=== PATIENT | female | born 1970 | race Caucasian/White ===

== ENCOUNTER 2016-07-28 19:47 | Emergency (ER) | payer OTHER ==
[2016-07-28 19:54] VITALS: BP 100/64; PULSE 60; TEMP 97.8; BMI 25.7
[2016-07-28] MEDS ORDERED: KETOROLAC TROMETHAMINE 30 MG/1 ML VIAL IM ONE (21:01)
[2016-07-28 21:06] LABS: URINE APPEARANCE SLCLOUDY; URINE BILIRUBIN NEGATIVE (NEGATIVE); URINE BLOOD NEGATIVE (NEGATIVE); URINE COLOR LTYELLOW; URINE GLUCOSE (UA) NEGATIVE (NEGATIVE); URINE KETONE NEGATIVE (NEGATIVE); URINE LEUK ESTERASE NEGATIVE (NEGATIVE); URINE NITRITE NEGATIVE (NEGATIVE); URINE PROTEIN NEGATIVE (NEGATIVE); URINE UROBILINOGEN NEGATIVE E.U./dl (0.2-1.0)
[2016-07-28] MEDS ORDERED: KETOROLAC TROMETHAMINE 30 MG/1 ML VIAL ONE (21:11)
--- NOTE | 2016-07-28 21:36 | PDOC ---
History of Present Illness - General Chief Complaint: Back Pain Stated Complaint: LOWER BACK PAIN Time Seen by Provider: 07/28/16 20:45 History Source: Patient Exam Limitations: No Limitations - History of Present Illness Initial Comments: 07/28/16 21:31 CC right lower back pain pain x 3 days; no trauma; no B/B disfuction Occurred: reports: last week Severity: reports: moderate Pain Location: reports: back Past History - Past Medical History Allergies/Adverse Reactions: Allergies Allergy/AdvReac Type Severity Reaction Status Date / Time No Known Allergies Allergy Verified 07/28/16 19:52 Home Medications: Ambulatory Orders NK [No Known Home Medication] 07/28/16 Anemia: Yes - Psycho/Social/Smoking Cessation Hx Suicidal Ideation: No Smoking History: Never smoked Review of Systems - Review of Systems Constitutional: No: Chills, Fever, Malaise HEENTM: No: Symptoms Reported, Difficulty Swallowing Respiratory: No: Symptoms reported, Cough Cardiac (ROS): No: Symptoms Reported ABD/GI: No: Symptoms Reported : No: Symptoms Reported Musculoskeletal: Yes: Back Pain Integumentary: No: Bruising, Lesions, Lumps Neurological: No: Symptoms reported *Physical Exam - Vital Signs Last Vital Signs Temp Pulse Resp BP Pulse Ox 97.8 F 60 18 100/64 98 07/28/16 19:52 07/28/16 19:52 07/28/16 19:52 07/28/16 19:52 07/28/16 19:52 - Physical Exam General Appearance: Yes: Appropriately Dressed HEENT: positive: TMs Normal, Pharynx Normal Neck: positive: Supple. negative: Tender, Rigid Respiratory/Chest: positive: Lungs Clear Cardiovascular: positive: Regular Rhythm, Regular Rate. negative: Murmur Musculoskeletal: positive: Other (tender to area of right SI joint) Extremity: negative: Erythema Integumentary: negative: Erythema, Rash Neurologic: positive: Alert, Motor Strength 5/5, Other (no oroot pain on SLRs; no foot drop). negative: Sensory Deficit, Babinski Deep Tendon Reflexes: Ankle (L): 2+, Ankle (R): 2+, Knee (L): 2+, Knee (R): 2+ ED Treatment Course - ADDITIONAL ORDERS Additional order review: Laboratory Results 07/28/16 20:50 Urine Color Ltyellow Urine Appearance Slcloudy Urine pH 6.0 Ur Specific [place] 1.025 Urine Protein Negative Urine Glucose (UA) Negative Urine Ketones Negative Urine Blood Negative Urine Nitrite Negative Urine Bilirubin Negative Urine Urobilinogen Negative Ur Leukocyte Esterase Negative Urine HCG, Qual Negative - Medications Given in the ED: ED Medications Discontinued Medications Generic Name Dose Route Start Last Admin Trade Name Bryce PRN Reason Stop Dose Admin Ketorolac Tromethamine 30 mg 07/28/16 21:01 07/28/16 21:21 Toradol Injection - IM 07/28/16 21:02 30 mg ONCE ONE Administration Medical Decision Making - Medical Decision Making 07/28/16 21:35 UA/ U preg= wnl; feeling better post toradol in ED *DC/Admit/Observation/Transfer Diagnosis at time of Disposition: Back pain Qualifiers: Back pain location: low back pain Chronicity: acute Back pain laterality: right Sciatica presence: without sciatica Qualified Code(s): M54.5 - Low back pain - Discharge Dispostion Disposition: HOME Condition at time of disposition: Stable Admit: No - Patient Instructions Additional Instructions: please see local MD this week in pain no better - Post Discharge Activity Work/School Note: Back to Work
== END 2016-07-28 21:51 | disposition home or self-care (01) ==
LOC: JERFT 19:47
PROC: 3E0233Z Introduction of Anti-inflammatory into Muscle, Percutaneous Approach (ICD-10-PCS; principal; 2016-07-28)
DX: M54.5 Low back pain (principal)
CPT/HCPCS: 81003; 84703; 96372; 99281-25

== ENCOUNTER 2016-07-29 17:52 | Emergency (ER) | payer OTHER ==
--- NOTE | 2016-07-29 18:07 | PDOC ---
Rapid Medical Evaluation Time Seen by Provider: 07/29/16 18:01 Medical Evaluation: Allergies Allergy/AdvReac Type Severity Reaction Status Date / Time No Known Allergies Allergy Verified 07/28/16 19:52 07/29/16 18:20 46 yo F h/o right sided nephrolithiasis c/o x3d ago. Seen here at [facility] last evening. UA was normal/ Upreg was negative last evening. Same pain today.
[2016-07-29 18:23] VITALS: BMI 25.7
[2016-07-29] MEDS ORDERED: KETOROLAC TROMETHAMINE 60 MG/2 ML VIAL IM ONE (19:16)
[2016-07-29] MEDS ORDERED: KETOROLAC TROMETHAMINE 30 MG/1 ML VIAL ONE (19:26)
[2016-07-29 19:44] LABS: URINE APPEARANCE CLEAR; URINE BILIRUBIN NEGATIVE (NEGATIVE); URINE BLOOD NEGATIVE (NEGATIVE); URINE COLOR LTYELLOW; URINE GLUCOSE (UA) NEGATIVE (NEGATIVE); URINE KETONE NEGATIVE (NEGATIVE); URINE LEUK ESTERASE NEGATIVE (NEGATIVE); URINE NITRITE NEGATIVE (NEGATIVE); URINE PROTEIN NEGATIVE (NEGATIVE); URINE UROBILINOGEN NEGATIVE E.U./dl (0.2-1.0)
[2016-07-29 19:50] LABS: BASOPHIL 0.8 % (0-2.0); EOSINOPHIL 1.7 % (0-4.5); MCH 30.9 pg (25.7-33.7); MCHC 33.8 g/dl (32.0-36.0); MEAN CELL VOLUME 91.5 fl (80-96); MEAN PLT VOLUME 7.7 fl (7.5-11.1); NEUTROPHILS 70.9 % (42.8-82.8); PLATELET COUNT 248 K/MM3 (134-434); RDW 13.5 % (11.6-15.6); WHITE BLOOD COUNT 10.6 K/mm3 (4.0-10.0)
[2016-07-29 20:14] LABS: ALBUMIN 4.2 g/dl (3.4-5.0); ALK PHOS 81 U/L (45-117); ANION GAP 6 (8-16); BILIRUBIN,TOTAL 0.3 mg/dL (0.2-1.0); CALCIUM 9.1 mg/dL (8.5-10.1); CO2 29 mmol/L (21-32); CREATININE 0.7 mg/dL (0.55-1.02); GLUCOSE,RANDOM 100 mg/dL (74-106); SGOT/AST 16 U/L (15-37); SGPT/ALT 28 U/L (12-78); TOT PROT 7.1 g/dl (6.4-8.2)
--- NOTE | 2016-07-29 20:22 | PDOC ---
History of Present Illness <KobiBelinda Latosha - Last Filed: 07/29/16 20:25> - History of Present Illness Initial Comments: 07/29/16 20:30 Patient is a 46 year old female with significant medical hx of anemia and hypotension who is presenting to the ED with right lower back pain for the past three weeks. Three weeks ago the patient stood out of bed too quickly and felt a muscle pull in her lower back. Her pain is localized to her right lower back with radiation down her right buttock and right lower extremity. The patient reports her pain worsens when standing and relieves when lying on her right side. Two weeks ago the patient was seen at [facility] and discharged on flexeril and naproxen; her pain relieved temporarily until it returned three days ago. She decided to come to the ED for further evaluation. Social Hx: Rare tobacco and alcohol use. Denies recreational drug use. Surgical Hx: 2008 LNMP: Allergies: None <Keyana Herman - Last Filed: 07/29/16 20:32> - General Chief Complaint: Pain Stated Complaint: BACK PAIN Time Seen by Provider: 07/29/16 18:01 Past History - Past Medical History Anemia: Yes Kidney Stones: Yes - Psycho/Social/Smoking Cessation Hx Anxiety: No Suicidal Ideation: No Smoking History: Never smoked Have you smoked in the past 12 months: No Information on smoking cessation initiated: No Hx Alcohol Use: No Drug/Substance Use Hx: No Substance Use Type: None <KobiBelindarai Reina - Last Filed: 07/29/16 20:25> <Keyana Herman - Last Filed: 07/29/16 20:32> - Past Medical History Allergies/Adverse Reactions: Allergies Allergy/AdvReac Type Severity Reaction Status Date / Time No Known Allergies Allergy Verified 07/29/16 18:18 Home Medications: Ambulatory Orders Cyclobenzaprine HCl [Flexeril 10 mg] 5 mg PO BID PRN #14 tablet 07/28/16 Naproxen [EC-Naprosyn] 375 mg PO BID #20 tablet.ec 07/28/16 Review of Systems - Review of Systems Comments:: 07/29/16 20:30 CONSTITUTIONAL: Absent: fever, chills, diaphoresis, generalized weakness, malaise, loss of appetite HEENT: Absent: rhinorrhea, nasal congestion, throat pain, throat swelling, difficulty swallowing, mouth swelling, ear pain, eye pain, visual changes CARDIOVASCULAR: Absent: chest pain, syncope, palpitations, irregular heart rate, lightheadedness , peripheral edema RESPIRATORY: Absent: cough, shortness of breath, dyspnea with exertion, orthopnea, wheezing, stridor, hemoptysis GASTROINTESTINAL: Absent: abdominal pain, abdominal distension, nausea, vomiting, diarrhea, constipation, melena, hematochezia GENITOURINARY: Absent: dysuria, frequency, urgency, hesitancy, hematuria, flank pain, genital pain MUSCULOSKELETAL: Present: right lower back pain Absent: myalgia, arthralgia, joint swelling SKIN: Absent: rash, itching, pallor HEMATOLOGIC/IMMUNOLOGIC: Absent: easy bleeding, easy bruising, lymphadenopathy, frequent infections ENDOCRINE: Absent: unexplained weight gain, unexplained weight loss, heat intolerance, cold intolerance NEUROLOGIC: Absent: headache, focal weakness or paresthesia, dizziness, unsteady gait, seizure, mental status changes, bladder or bowel incontinence. PSYCHIATRIC: Absent: anxiety, depression, suicidal or homicidal ideation, hallucinations <Keyana Herman - Last Filed: 07/29/16 20:32> *Physical Exam - Vital Signs Last Vital Signs Temp Pulse Resp BP Pulse Ox 97.7 F 58 L 16 97/70 100 07/29/16 18:20 07/29/16 18:20 07/29/16 18:20 07/29/16 18:20 07/29/16 18:20 <Belinda Peace - Last Filed: 07/29/16 20:25> - Vital Signs Last Vital Signs Temp Pulse Resp BP Pulse Ox 97.7 F 58 L 16 97/70 100 07/29/16 18:20 07/29/16 18:20 07/29/16 18:20 07/29/16 18:20 07/29/16 18:20 - Physical Exam Comments: 07/29/16 20:30 GENERAL: Well developed, well nourished. Awake and alert. No acute distress. HEENT: Normocephalic, atraumatic. PERRLA, EOMI. No conjunctival pallor. Sclera are non- icteric. Moist mucous membranes. Oropharynx is clear. NECK: Supple. Full ROM. No JVD. Carotid pulses 2+ and symmetric, without bruits. No thyromegaly. No lymphadenopathy. CARDIOVASCULAR: Regular rate and rhythm. No murmurs, rubs, or gallops. Distal pulses are 2+ and symmetric. PULMONARY: No evidence of respiratory distress. Lungs clear to auscultation bilaterally. No wheezing, rales or rhonchi. ABDOMINAL: Soft. Non-tender. Non-distended. No rebound or guarding. No organomegaly. Normoactive bowel sounds. MUSCULOSKELETAL: Right lower back, right buttock, right posterior thigh tenderness. Normal range of motion at all joints. No bony deformities. No CVA tenderness. EXTREMITIES: No cyanosis. No clubbing. No edema. No calf tenderness. SKIN: Warm and dry. Normal capillary refill. No rashes. No jaundice. NEUROLOGICAL: Alert, awake, appropriate. Cranial nerves 2-12 intact. Normal speech. Gait is normal without ataxia. PSYCHIATRIC: Cooperative. Good eye contact. Appropriate mood and affect. <Keyana Herman - Last Filed: 07/29/16 20:32> ED Treatment Course - LABORATORY CBC & Chemistry Diagram: 07/29/16 19:41 07/29/16 19:41 - ADDITIONAL ORDERS Additional order review: Laboratory Results 07/29/16 07/29/16 07/29/16 19:41 19:28 19:28 Sodium 140 Potassium 4.0 Chloride 105 Carbon Dioxide 29 Anion Gap 6 L BUN 13 Creatinine 0.7 Creat Clearance w eGFR > 60 Random Glucose 100 Calcium 9.1 Total Bilirubin 0.3 AST 16 ALT 28 Alkaline Phosphatase 81 Total Protein 7.1 Albumin 4.2 Urine Color Ltyellow Urine Appearance Clear Urine pH 6.0 Ur Specific [place] 1.019 Urine Protein Negative Urine Glucose (UA) Negative Urine Ketones Negative Urine Blood Negative Urine Nitrite Negative Urine Bilirubin Negative Urine Urobilinogen Negative Ur Leukocyte Esterase Negative Urine HCG, Qual Negative 07/29/16 19:41 RBC 4.59 MCV 91.5 MCHC 33.8 RDW 13.5 MPV 7.7 Neutrophils % 70.9 Lymphocytes % 19.8 Monocytes % 6.8 Eosinophils % 1.7 Basophils % 0.8 - Medications Given in the ED: ED Medications Discontinued Medications Generic Name Dose Route Start Last Admin Trade Name Freq PRN Reason Stop Dose Admin Ketorolac Tromethamine 60 mg 07/29/16 19:16 07/29/16 19:37 Toradol Injection - IM 07/29/16 19:17 60 mg ONCE ONE Administration <Belinda Peace - Last Filed: 07/29/16 20:25> - LABORATORY CBC & Chemistry Diagram: 07/29/16 19:41 07/29/16 19:41 - ADDITIONAL ORDERS Additional order review: Laboratory Results 07/29/16 07/29/16 07/29/16 19:41 19:28 19:28 Sodium 140 Potassium 4.0 Chloride 105 Carbon Dioxide 29 Anion Gap 6 L BUN 13 Creatinine 0.7 Creat Clearance w eGFR > 60 Random Glucose 100 Calcium 9.1 Total Bilirubin 0.3 AST 16 ALT 28 Alkaline Phosphatase 81 Total Protein 7.1 Albumin 4.2 Urine Color Ltyellow Urine Appearance Clear Urine pH 6.0 Ur Specific [place] 1.019 Urine Protein Negative Urine Glucose (UA) Negative Urine Ketones Negative Urine Blood Negative Urine Nitrite Negative Urine Bilirubin Negative Urine Urobilinogen Negative Ur Leukocyte Esterase Negative Urine HCG, Qual Negative 07/29/16 19:41 RBC 4.59 MCV 91.5 MCHC 33.8 RDW 13.5 MPV 7.7 Neutrophils % 70.9 Lymphocytes % 19.8 Monocytes % 6.8 Eosinophils % 1.7 Basophils % 0.8 - Medications Given in the ED: ED Medications Discontinued Medications Generic Name Dose Route Start Last Admin Trade Name Bryce PRN Reason Stop Dose Admin Ketorolac Tromethamine 60 mg 07/29/16 19:16 07/29/16 19:37 Toradol Injection - IM 07/29/16 19:17 60 mg ONCE ONE Administration <Keyana Herman - Last Filed: 07/29/16 20:32> *DC/Admit/Observation/Transfer <Belinda Peace - Last Filed: 07/29/16 20:25> - Attestations Scribe Attestion: 07/29/16 20:32 Documentation prepared by Keyana Herman, acting as medical specialist for Belinda Peace MD. <Keyana Herman - Last Filed: 07/29/16 20:32> Diagnosis at time of Disposition: Sciatica Qualifiers: Laterality: right Qualified Code(s): M54.31 - Sciatica, right side - Discharge Dispostion Disposition: HOME Condition at time of disposition: Stable - Referrals Referrals: Zeke Moreno [Primary Care Provider] - Javier Hughes MD [Staff Physician] - - Patient Instructions Printed Discharge Instructions: DI for Back Pain With Sciatica Additional Instructions: please continue to take your pain medications followup with an orthopedist for further treatment
[2016-07-29 20:38] VITALS: BP 124/80; PULSE 87; TEMP 98.3
== END 2016-07-29 20:38 | disposition home or self-care (01) ==
LOC: JER 17:52
PROC: 3E0233Z Introduction of Anti-inflammatory into Muscle, Percutaneous Approach (ICD-10-PCS; principal; 2016-07-29)
DX: M54.41 Lumbago with sciatica, right side (principal)
CPT/HCPCS: 36415; 80053; 81003; 84703; 85025; 96372; 99283-25